=== PATIENT | male | born 1980 | race Two or more races ===

== ENCOUNTER 2020-11-16 01:59 | Emergency (ER) | payer SELFPAY ==
[~2020-11-16] VITALS: Ht 170.2 cm; Wt 81.8 kg
[2020-11-16] MEDS ORDERED: IV NORMAL SALINE 1000ML BAG 1,000 ML IV ONE (03:15)
[2020-11-16 03:25] LABS: BASO # 0.1 x10^3/uL (0.0-0.2); BASO % 1 % (0-3); EOS # 0.3 x10^3/uL (0.0-0.7); EOS % 3 % (0-3); HEMATOCRIT 41.4 % (39.0-53.0); LYMPH # 2.9 x10^3/uL (1.0-4.8); LYMPH % 34 % (24-48); MEAN CORPUSCULAR HEMOGLOBIN 30 pg (25-35); MEAN CORPUSCULAR HGB CONC 34 g/dL (31-37); MEAN CORPUSCULAR VOLUME 88 fL (79-100); MONO # 0.5 x10^3/uL (0.0-1.1); MONO % 6 % (0-9); NEUT # 4.8 x10^3/uL (1.8-7.7); NEUT % 56 % (31-73); PLATELET COUNT 300 x10^3/uL (140-400); RED CELL DISTRIBUTION WIDTH 13.2 % (11.5-14.5); WHITE BLOOD COUNT 8.6 x10^3/uL (4.0-11.0)
[2020-11-16 03:35] LABS: BILIRUBIN,URINE NEGATIVE (NEG); CLARITY,URINE CLEAR; COLOR,URINE YELLOW; NITRITE,URINE NEGATIVE (NEG); PROTEIN,URINE NEGATIVE (NEG-TRACE); UROBILINOGEN,URINE 0.2 mg/dL (0.2 mg/dL)
[2020-11-16 03:40] LABS: CALCIUM 8.7 mg/dL (8.5-10.1); GFR 82.3
[2020-11-16] MEDS ORDERED: ONDANSETRON PF 4 MG/2 ML VIAL. ONE (03:40)
[2020-11-16 03:45] LABS: ALBUMIN 3.3 g/dL (3.4-5.0); ALBUMIN/GLOBULIN RATIO 0.8 (1.0-1.7); TOTAL BILIRUBIN 0.2 mg/dL (0.2-1.0); TOTAL PROTEIN 7.2 g/dL (6.4-8.2)
[2020-11-16] MEDS ORDERED: ONDANSETRON PF 4 MG/2 ML VIAL. IVP ONE (03:45)
[2020-11-16] MEDS ORDERED: MORPHINE SULFATE 10 MG/ML VIAL. IV ONE ×2 (03:45→04:30)
[2020-11-16 03:49] LABS: BACTERIA,URINE 0 /HPF (0-FEW); RBC,URINE 0 /HPF (0-2); WBC,URINE 0 /HPF (0-4)
[2020-11-16] MEDS ORDERED: IOHEXOL 240 MG/ML 50ML VIAL. PO ONE (04:45)
[2020-11-16] MEDS ORDERED: IOHEXOL 300 MG/ML 100ML VIAL. IV ONE (04:45)
--- NOTE | 2020-11-16 04:47 | ED.ADGEN ---
Past Medical History Past Medical History: No Pertinent History Past Surgical History: Appendectomy Smoking Status: Never Smoker Alcohol Use: Occasionally General Adult EDM: Chief Complaint: ABDOMINAL PAIN HPI: HPI: Patient is a 40-year-old male who presents to the emergency room complaining of epigastric abdominal pain. He states that it started this evening around 10 PM. It has been constant since that time and has progressively gotten worse. He states he feels like it is a burning pain. He has never had anything similar to this in the past. He denies any nausea vomiting, diarrhea, constipation, fever, chills, sweats, chest pain. He states that it feels like it is difficult to take a deep breath because of the pressure in his abdomen. He feels like he is distended. He has never had anything like this previously. He denies any kind of trauma. He has not tried to eat or drink anything since this onset. Review of Systems: Review of Systems: Complete ROS is negative unless otherwise documented in HPI Current Medications: Current Medications Medications (Trade) Dose Ordered Sig/Rahul Start Time Stop Time Status Last Admin Dose Admin Info (CONTRAST GIVEN -- Rx MONITORING) 1 each PRN DAILY PRN 11/16/20 05:00 11/16/20 07:30 DC Iohexol (Omnipaque 240 Mg/ml) 30 ml 1X ONCE 11/16/20 04:45 11/16/20 04:48 DC 11/16/20 04:58 30 ML Iohexol (Omnipaque 300 Mg/ml) 75 ml 1X ONCE 11/16/20 04:45 11/16/20 04:48 DC 11/16/20 04:58 75 ML Morphine Sulfate (Morphine Sulfate) 5 mg 1X ONCE 11/16/20 04:30 11/16/20 04:31 DC 11/16/20 04:28 5 MG Multi-Ingredient Mouthwash/Gargle (Gi Cocktail) 20 ml 1X ONCE 11/16/20 05:30 11/16/20 05:31 DC 11/16/20 05:44 20 ML Ondansetron HCl (Zofran) 4 mg STK-MED ONCE 11/16/20 03:40 11/16/20 03:40 DC Sodium Chloride 1,000 ml @ 1,000 mls/hr 1X ONCE 11/16/20 03:15 11/16/20 04:14 DC 11/16/20 03:33 1,000 MLS/HR Sucralfate (Carafate) 1 gm 1X ONCE 11/16/20 05:30 11/16/20 05:31 DC 11/16/20 05:44 1 GM Allergies: Allergies: Allergies Coded Allergies Type Severity Reaction Last Updated Verified No Known Drug Allergies 11/16/20 No Physical Exam: PE: General: Awake, alert, NAD. Well Nourished, well hydrated. Cooperative HEENT: Atraumatic, EOMI, PERRL, airway patent, moist oral mucosa Neck: Supple, trachea midline Respiratory: CTA bilaterally, normal effort, no wheezing/crackles CV: RRR, no murmur, cap refill <2 GI: Soft, distended, no rebound, no guarding, epigastric and right upper quadrant tenderness MSK: No obvious deformities Skin: Warm, dry, intact Neuro: A&O x3, speech NL, sensory and motor grossly intact, no focal deficits Psych: Normal affect, normal mood, not suicidal or homicidal Current Patient Data: Labs: Laboratory Tests Test 11/16/20 03:18 11/16/20 03:29 White Blood Count 8.6 x10^3/uL (4.0-11.0) Red Blood Count 4.70 x10^6/uL (4.30-5.70) Hemoglobin 14.0 g/dL (13.0-17.5) Hematocrit 41.4 % (39.0-53.0) Mean Corpuscular Volume 88 fL (79-100) Mean Corpuscular Hemoglobin 30 pg (25-35) Mean Corpuscular Hemoglobin Concent 34 g/dL (31-37) Red Cell Distribution Width 13.2 % (11.5-14.5) Platelet Count 300 x10^3/uL (140-400) Neutrophils (%) (Auto) 56 % (31-73) Lymphocytes (%) (Auto) 34 % (24-48) Monocytes (%) (Auto) 6 % (0-9) Eosinophils (%) (Auto) 3 % (0-3) Basophils (%) (Auto) 1 % (0-3) Neutrophils # (Auto) 4.8 x10^3/uL (1.8-7.7) Lymphocytes # (Auto) 2.9 x10^3/uL (1.0-4.8) Monocytes # (Auto) 0.5 x10^3/uL (0.0-1.1) Eosinophils # (Auto) 0.3 x10^3/uL (0.0-0.7) Basophils # (Auto) 0.1 x10^3/uL (0.0-0.2) Sodium Level 138 mmol/L (136-145) Potassium Level 4.0 mmol/L (3.5-5.1) Chloride Level 106 mmol/L (98-107) Carbon Dioxide Level 21 mmol/L (21-32) Anion Gap 11 (6-14) Blood Urea Nitrogen 17 mg/dL (8-26) Creatinine 1.0 mg/dL (0.7-1.3) Estimated GFR (Cockcroft-Gault) 82.3 BUN/Creatinine Ratio 17 (6-20) Glucose Level 126 mg/dL (70-99) H Calcium Level 8.7 mg/dL (8.5-10.1) Total Bilirubin 0.2 mg/dL (0.2-1.0) Aspartate Amino Transferase (AST) 18 U/L (15-37) Alanine Aminotransferase (ALT) 39 U/L (16-63) Alkaline Phosphatase 102 U/L (46-116) Troponin I Quantitative < 0.017 ng/mL (0.000-0.055) Total Protein 7.2 g/dL (6.4-8.2) Albumin 3.3 g/dL (3.4-5.0) L Albumin/Globulin Ratio 0.8 (1.0-1.7) L Lipase 168 U/L (73-393) Urine Collection Type Unknown Urine Color Yellow Urine Clarity Clear Urine pH 5.0 (<5.0-8.0) Urine Specific [place] <=1.005 (1.000-1.030) Urine Protein Negative mg/dL (NEG-TRACE) Urine Glucose (UA) Negative mg/dL (NEG) Urine Ketones (Stick) Negative mg/dL (NEG) Urine Blood Negative (NEG) Urine Nitrite Negative (NEG) Urine Bilirubin Negative (NEG) Urine Urobilinogen Dipstick 0.2 mg/dL (0.2 mg/dL) Urine Leukocyte Esterase Negative (NEG) Urine RBC 0 /HPF (0-2) Urine WBC 0 /HPF (0-4) Urine Squamous Epithelial Cells Few /LPF Urine Bacteria 0 /HPF (0-FEW) Urine Mucus Slight /LPF Laboratory Tests 11/16/20 03:18 Laboratory Tests 11/16/20 03:18 Vital Signs: Vital Signs Date Time Temp Pulse Resp B/P (MAP) Pulse Ox O2 Delivery O2 Flow Rate FiO2 11/16/20 06:30 66 14 141/79 (99) 95 Room Air 11/16/20 03:00 97.7 97.7 EKG: EKG: [] Heart Score: Risk Factors: Risk Factors: DM, Current or recent (<one month) smoker, HTN, HLP, family history of CAD, obesity. Risk Scores: Score 0 - 3: 2.5% MACE over next 6 weeks - Discharge Home Score 4 - 6: 20.3% MACE over next 6 weeks - Admit for Clinical Observation Score 7 - 10: 72.7% MACE over next 6 weeks - Early Invasive Strategies Radiology/Procedures: Radiology/Procedures: [] Course & Med Decision Making: Course & Med Decision Making Pertinent Labs and Imaging studies reviewed. (See chart for details) Patient is a 40-year-old male who presents to the emergency room complaining of epigastric abdominal pain with his sudden onset around 10 PM while resting. Patient does have tenderness in the epigastric and right upper quadrant abdomen. Differential diagnosis includes atypical cardiac chest pain, gastritis, peptic ulcer disease, perforated ulcer, acute cholecystitis, hepatitis, gastroenteritis. EKG was done and is negative for STEMI. Abdominal work-up was ordered including CBC, CMP, lipase, UA, CT abdomen pelvis. Patient attempted to drink the contrast but then had a worsening burning sensation in his abdomen. CT abdomen pelvis is normal. This is likely an ulcer or gastritis. Will place patient on Nexium and Carafate. Patient's test results and vitals while in the ED were fully reviewed and discussed with the patient. Patient is stable and at this time does not need admission to the hospital. We have discussed strict return precautions and the importance of following up with their Primary Care Physician. Patient stated understanding and was given an opportunity to ask any questions. Patient is in agreement with plan. Selvin Disclaimer: Selvin Disclaimer: This electronic medical record was generated, in whole or in part, using a voice recognition dictation system. Departure Departure Impression: Primary Impression: Gastritis Disposition: 01 DC HOME SELF CARE/HOMELESS Condition: STABLE Referrals: NO PCP (PCP) Patient Instructions: Peptic Ulcer Disease Scripts Esomeprazole Magnesium (NEXIUM CAPSULE) 20 Mg Capsule.dr 1 CAP PO DAILY, #14 CAP 0 Refills Prov: TIARA CIFUENTES MD 11/16/20 Sucralfate (CARAFATE) 1 Gm Tablet 1 TAB PO QID for 30 Days, #120 TAB 0 Refills Prov: TIARA CIFUENTES MD 11/16/20 TIARA CIFUENTES MD Nov 16, 2020 04:47
[2020-11-16] MEDS ORDERED: CONTRAST GIVEN. MC PRN (05:00)
--- NOTE | 2020-11-16 05:23 | RAD ---
PQRS Compliance Statement: One or more of the following individualized dose reduction techniques were utilized for this examinat ion: 1. Automated exposure control 2. Adjustment of the mA and/or kV according to patient size 3. Use of iterative reconstruction technique CT abdomen/pelvis with contrast 11/16/2020 4:44 AM INDICATION: Epigastric abdominal pain COMPARISON: None available TECHNIQUE: Multiple axial CT images of the abdomen and pelvis were obtained after the intravenous adm inistration of nonionic contrast. Coronal and sagittal reformats are provided. FINDINGS: There is bibasilar subsegmental atelectasis. Heart size is within normal limits. Liver, spleen, adrenal glands, pancreas and gallbladder are normal in appearance. The abdominal aorta is normal in course and caliber. There are no pathologically enlarged lymph nodes in the abdomen and pelvis. There is no abdominal free fluid. There is no free intraperitoneal air. S mall fat-containing bilateral inguinal hernias are present. Small and large bowel are normal in calib er. There is no evidence for bowel obstruction. There are no pericolonic inflammatory changes. Append ix is surgically absent. The kidneys enhance symmetrically. There is no suspicious renal mass. There is no hydronephrosis. There are no suspected calculi within the kidneys, ureters or urinary bladder. The kidneys enhance symmetrically. There is no suspicious renal mass. There is no hydronephrosis. The re are no suspected calculi within the kidneys, ureters or urinary bladder. Urinary bladder is within normal limits given degree of distention. Prostate and seminal vesicles are normal. No suspicious os seous abnormality is identified. IMPRESSION: No acute abnormalities identified in abdomen and pelvis. Electronically signed by: Noreen Elizalde MD (11/16/2020 5:20 AM) [facility]
[2020-11-16] MEDS ORDERED: SUCR1TAB35 PO (05:29)
[2020-11-16] MEDS ORDERED: ESOM20CA PO (05:29)
[2020-11-16] MEDS ORDERED: SUCRALFATE 1 GM TABLET. PO ONE (05:30)
[2020-11-16] MEDS ORDERED: LIDO:MAALOX 1:1 20 ML SINGLE DOSE. SWSW ONE (05:30)
[2020-11-16 06:30] VITALS: BP 141/79
--- NOTE | 2020-11-16 08:55 | EKG ---
[facility] [address] [place] [address] Test Date: 2020-11-16 Test Time: 03:27:35 Pat Name: BRAN CHARLES Department: Room: Gender: M Football Coach: : 1980 Requested By: TIARA CIFUENTES Order Number: [id number] Reading MD: Measurements Intervals [place] Rate: 64 P: 34 ND: 152 QRS: 15 QRSD: 82 T: 15 QT: 408 QTc: 425 Interpretive Statements SINUS RHYTHM OTHERWISE NORMAL ECG RI6.02 No previous ECG available for comparison
== END 2020-11-16 06:59 | disposition home or self-care (01) ==
LOC: ER 01:59
DX: K29.70 Gastritis, unspecified, without bleeding (principal); Z90.89 Acquired absence of other organs
CPT/HCPCS: 36415; 74177; 80053; 81001; 83690; 84484; 85025; 93005; 96361; 96374; 96375; 96376; 99285; J2270; J2405; J7030; Q9966; Q9967

== ENCOUNTER 2021-09-10 23:56 | Inpatient (IN) | payer SELFPAY ==
[~2021-09-10] VITALS: Ht 170.2 cm; Wt 81.0 kg
[~2021-09-10 23:56] MED LIST: ESOM20CA PO; SUCR1TAB35 PO
[2021-09-11 01:21] LABS: BASO % 0 % (0-3); EOS # 0.2 x10^3/uL (0.0-0.7); EOS % 1 % (0-3); HEMATOCRIT 42.6 % (39.0-53.0); HEMOGLOBIN 14.2 g/dL (13.0-17.5); LYMPH # 3.2 x10^3/uL (1.0-4.8); LYMPH % 23 % (24-48); MEAN CORPUSCULAR HEMOGLOBIN 30 pg (25-35); MEAN CORPUSCULAR HGB CONC 33 g/dL (31-37); MEAN CORPUSCULAR VOLUME 89 fL (79-100); MONO # 0.7 x10^3/uL (0.0-1.1); MONO % 6 % (0-9); NEUT # 9.4 x10^3/uL (1.8-7.7); NEUT % 69 % (31-73); PLATELET COUNT 346 x10^3/uL (140-400); RED BLOOD COUNT 4.79 x10^6/uL (4.30-5.70); RED CELL DISTRIBUTION WIDTH 13.4 % (11.5-14.5); WHITE BLOOD COUNT 13.5 x10^3/uL (4.0-11.0)
[2021-09-11 01:29] LABS: CALCIUM 8.8 mg/dL (8.5-10.1); CREATININE 0.9 mg/dL (0.7-1.3); GFR 92.5; POTASSIUM 3.7 mmol/L (3.5-5.1)
[2021-09-11] MEDS ORDERED: IV NORMAL SALINE 1000ML BAG 1,000 ML IV SCH (01:30)
[2021-09-11] MEDS ORDERED: HYDROmorphone 2 MG/ML VIAL IVP ONE ×3 (01:30→05:30)
[2021-09-11] MEDS ORDERED: FAMOTIDINE 20 MG/2 ML VIAL IVP ONE ×2 (01:30→05:30)
[2021-09-11 01:36] LABS: ALBUMIN 3.6 g/dL (3.4-5.0); DIRECT BILIRUBIN 0.1 mg/dL (0.0-0.2); TOTAL BILIRUBIN 0.3 mg/dL (0.2-1.0); TOTAL PROTEIN 7.6 g/dL (6.4-8.2)
[2021-09-11] MEDS ORDERED: CONTRAST GIVEN. MC PRN (02:00)
[2021-09-11] MEDS ORDERED: IOHEXOL 300 MG/ML 100ML VIAL. IV ONE (02:30)
--- NOTE | 2021-09-11 03:23 | RAD ---
INDICATION: Reason: severe upper abdominal pain;OMNI 300, 75ML / Spl. Instructions: / History: . COMPARISON: CT abdomen November 2020 TECHNIQUE: Axial CT images obtained through the chest, abdomen and pelvis with contrast. One or more of the following individualized dose reduction techniques were utilized for this examinat ion: 1. Automated exposure control; 2. Adjustment of the mA and/or kV according to patient size; 3 . Use of iterative reconstruction technique. FINDINGS: Mild patchy opacities bilateral lungs. No thoracic aortic aneurysm. Degenerative changes spine. No abdominal aortic aneurysm. Fat-containing inguinal hernias. Liver is low density which can be seen with fatty infiltration. Gallbladder is mildly distended. Small fat-containing anterior abdominal wall hernia suspected. No peripancreatic fluid collection. Spleen unremarkable. No hydronephrosis. Urinary bladder is partially distended. Scattered colonic diverticulosis. Surgical clips right lower quadrant. Degenerative changes lumbar spine with multilevel central canal and neural foraminal stenosis. IMPRESSION: * No evidence of bowel obstruction. * Mild patchy opacities bilateral lungs could be atelectasis or infiltrate. * Gallbladder is distended at time of exam. * Degenerative changes the spine. There is also some wedging of thoracic vertebral bodies which coul d be congenital in nature or secondary to Schmorl's nodes or mild compression deformities this includ es at T1, T2, T3 and T4. Electronically signed by: Thierno Montiel MD (09/11/2021 3:20 AM) [id number]
--- NOTE | 2021-09-11 03:30 | PHYS DOC ---
Past Medical History Past Medical History: No Pertinent History Past Surgical History: Appendectomy Smoking Status: Current Every Day Smoker Alcohol Use: Occasionally General Adult EDM: Chief Complaint: ABDOMINAL PAIN HPI: HPI: 41-year-old male, who denies any past medical history, presents the ED with his girlfriend, (patient consents to his/her/their knowledge and involvement in pts' medical care), with complaints of severe, sharp, nonradiating epigastric and right upper quadrant pain that woke him up around 2 AM. Reports associated dizziness. Past surgical history of appendectomy. States he was seen here few years ago for the same pain. Last bowel movement was just prior to arrival, normal brown color. States he had 2 shots of alcohol earlier in the morning-denies any binge drinking or IV drug use. No associated trauma. Review of Systems: Review of Systems: Constitutional: Denies fever or chills. [] Eyes: Denies change in visual acuity. [] HENT: Denies nasal congestion or sore throat. [] Respiratory: Denies cough or shortness of breath. [] Cardiovascular: Denies chest pain or edema. [] GI: Denies bloody stools or diarrhea. [] : Denies dysuria or hematuria Musculoskeletal: Denies midline back pain or joint pain. [] Integument: Denies rash or diaphoresis Neurologic: Denies headache, focal weakness or sensory changes. [] Endocrine: Denies polyuria or polydipsia. [] Lymphatic: Denies swollen glands. [] Psychiatric: Denies depression or anxiety. [] Heart Score: C/O Chest Pain: No Risk Factors: Risk Factors: DM, Current or recent (<one month) smoker, HTN, HLP, family history of CAD, obesity. Risk Scores: Score 0 - 3: 2.5% MACE over next 6 weeks - Discharge Home Score 4 - 6: 20.3% MACE over next 6 weeks - Admit for Clinical Observation Score 7 - 10: 72.7% MACE over next 6 weeks - Early Invasive Strategies Current Medications: Current Medications Medications (Trade) Dose Ordered Sig/Rahul Start Time Stop Time Status Last Admin Dose Admin Famotidine (Pepcid Vial) 20 mg 1X ONCE 09/11/21 01:30 09/11/21 01:31 DC 09/11/21 01:24 20 MG Hydromorphone HCl (Dilaudid) 1 mg 1X ONCE 09/11/21 02:30 09/11/21 02:31 DC 09/11/21 02:11 1 MG Info (CONTRAST GIVEN -- Rx MONITORING) 1 each PRN DAILY PRN 09/11/21 02:00 09/13/21 01:59 Iohexol (Omnipaque 300 Mg/ml) 75 ml 1X ONCE 09/11/21 02:30 09/11/21 02:31 DC 09/11/21 02:06 75 ML Sodium Chloride 1,000 ml @ 1,000 mls/hr Q1H 09/11/21 01:30 09/11/21 02:29 DC 09/11/21 01:23 1,000 MLS/HR Allergies: Allergies: Allergies Coded Allergies Type Severity Reaction Last Updated Verified No Known Drug Allergies 11/16/20 No Physical Exam: PE: Constitutional: Writhing in pain, constantly moving in ED stretcher-pain is not positional, faint alcohol on breath, hypertensive HENT: Normocephalic, atraumatic, Eyes: EOMI, conjunctiva normal, no discharge. Neck: Normal range of motion, supple, Cardiovascular: S1/2 present, regular rhythm Lungs & Thorax: Speaking in full sentences, bilateral equal chest rise, no tachypnea or increased work of breathing Abdomen: soft, epigastric and right upper quadrant tenderness but no rest with inspiration, no rigidity Skin: Warm, dry, no erythema, no rash. [] Back: No tenderness, physical exam reports right flank pain Extremities: No tenderness, no cyanosis, no lower extremity edema Neurologic: Alert and oriented X 3, normal motor function, normal sensory function, no focal deficits noted. [] Psychologic: Affect normal, judgement normal, mood normal. [] Current Patient Data: Labs: Laboratory Tests Test 09/11/21 01:10 White Blood Count 13.5 x10^3/uL (4.0-11.0) H Red Blood Count 4.79 x10^6/uL (4.30-5.70) Hemoglobin 14.2 g/dL (13.0-17.5) Hematocrit 42.6 % (39.0-53.0) Mean Corpuscular Volume 89 fL (79-100) Mean Corpuscular Hemoglobin 30 pg (25-35) Mean Corpuscular Hemoglobin Concent 33 g/dL (31-37) Red Cell Distribution Width 13.4 % (11.5-14.5) Platelet Count 346 x10^3/uL (140-400) Neutrophils (%) (Auto) 69 % (31-73) Lymphocytes (%) (Auto) 23 % (24-48) L Monocytes (%) (Auto) 6 % (0-9) Eosinophils (%) (Auto) 1 % (0-3) Basophils (%) (Auto) 0 % (0-3) Neutrophils # (Auto) 9.4 x10^3/uL (1.8-7.7) H Lymphocytes # (Auto) 3.2 x10^3/uL (1.0-4.8) Monocytes # (Auto) 0.7 x10^3/uL (0.0-1.1) Eosinophils # (Auto) 0.2 x10^3/uL (0.0-0.7) Basophils # (Auto) 0.0 x10^3/uL (0.0-0.2) Sodium Level 140 mmol/L (136-145) Potassium Level 3.7 mmol/L (3.5-5.1) Chloride Level 102 mmol/L (98-107) Carbon Dioxide Level 28 mmol/L (21-32) Anion Gap 10 (6-14) Blood Urea Nitrogen 20 mg/dL (8-26) Creatinine 0.9 mg/dL (0.7-1.3) Estimated GFR (Cockcroft-Gault) 92.5 Glucose Level 140 mg/dL (70-99) H Calcium Level 8.8 mg/dL (8.5-10.1) Total Bilirubin 0.3 mg/dL (0.2-1.0) Direct Bilirubin 0.1 mg/dL (0.0-0.2) Aspartate Amino Transferase (AST) 19 U/L (15-37) Alanine Aminotransferase (ALT) 39 U/L (16-63) Alkaline Phosphatase 129 U/L (46-116) H Creatine Kinase 94 U/L (39-308) Troponin I High Sensitivity < 4 ng/L (4-75) L Total Protein 7.6 g/dL (6.4-8.2) Albumin 3.6 g/dL (3.4-5.0) Lipase 130 U/L (73-393) Ethyl Alcohol Level < 10 mg/dL (0-10) Laboratory Tests 09/11/21 01:10 Laboratory Tests 09/11/21 01:10 Vital Signs: Vital Signs Date Time Temp Pulse Resp B/P (MAP) Pulse Ox O2 Delivery O2 Flow Rate FiO2 09/11/21 02:11 22 98 Room Air 09/11/21 01:35 60 130/81 (97) 09/11/21 01:07 97.5 97.5 EKG: EKG: Sinus 64 bpm, no axis deviation, normal intervals, no T wave inversion, no ST elevation or ST depression Radiology/Procedures: Radiology/Procedures: IMAGING REPORT Signed PATIENT: BRAN CHARLES ACCOUNT: [id number] : 1980 LOCATION: ER AGE: 41 SEX: M EXAM STATUS: REG ER ORD. PHYSICIAN: DAQUAN PALACIOS DO REASON: severe upper abdominal pain;OMNI 300, 75ML PROCEDURE: CT CHEST ABD PELVIS W/CONTRAST INDICATION: Reason: severe upper abdominal pain;OMNI 300, 75ML / Spl. Instructions: / History: . COMPARISON: CT abdomen November 2020 TECHNIQUE: Axial CT images obtained through the chest, abdomen and pelvis with contrast. One or more of the following individualized dose reduction techniques were utilized for this examination: 1. Automated exposure control; 2. Adjustment of the mA and/or kV according to patient size; 3. Use of iterative reconstruction technique. FINDINGS: Mild patchy opacities bilateral lungs. No thoracic aortic aneurysm. Degenerative changes spine. No abdominal aortic aneurysm. Fat-containing inguinal hernias. Liver is low density which can be seen with fatty infiltration. Gallbladder is mildly distended. Small fat-containing anterior abdominal wall hernia suspected. No peripancreatic fluid collection. Spleen unremarkable. No hydronephrosis. Urinary bladder is partially distended. Scattered colonic diverticulosis. Surgical clips right lower quadrant. Degenerative changes lumbar spine with multilevel central canal and neural foraminal stenosis. IMPRESSION: * No evidence of bowel obstruction. * Mild patchy opacities bilateral lungs could be atelectasis or infiltrate. * Gallbladder is distended at time of exam. * Degenerative changes the spine. There is also some wedging of thoracic vertebral bodies which could be congenital in nature or secondary to Schmorl's nodes or mild compression deformities this includes at T1, T2, T3 and T4. Electronically signed by: Becki Sol MD (09/11/2021 3:20 AM) [id number] DICTATED and SIGNED BY: BECKI SOL MD DATE: 09/11/[id number] 0 IMAGING REPORT Signed PATIENT: BRAN CHARLES ACCOUNT: [id number] : 1980 LOCATION: ER AGE: 41 SEX: M EXAM STATUS: REG ER ORD. PHYSICIAN: DAQUAN PALACIOS DO REASON: ruq pain, distended gb PROCEDURE: ABDOMEN LTD INDICATION : Reason: ruq pain, distended gb / Spl. Instructions: / History: COMPARISON: CT from same day TECHNIQUE: Multiple ultrasound images obtained through the abdomen in grayscale and color. FINDINGS: Pancreas: Overlying structures obscuring Liver: Echogenic Gallbladder: Distended gallbladder with stones and sludge within. The patient has some tenderness in the area. Portions the wall prominent in thickness measuring up to 4 mm. IVC: Partially distended at level of liver. Common Bile Duct: Not dilated. Right Kidney: No hydronephrosis. IMPRESSION: * Distended gallbladder with stones and sludge within. There is also mild prominence of the wall within a portion of the gallbladder for the degree of distention. Would correlate with symptoms in the area and if further information is needed nuclear hepatobiliary scan could further assess for cholecystitis given the presence of this distention and stones as well as sludge. * Liver is echogenic. Can be seen with fatty infiltration. Electronically signed by: Becki Sol MD (09/11/2021 4:18 AM) [id number] DICTATED and SIGNED BY: BECKI SOL MD DATE: 09/11/21 [id number] *CXR radiology read pending, i viewed myself Course & Med Decision Making: Course & Med Decision Making Pertinent Labs and Imaging studies reviewed. (See chart for details) Concern for upper and right-sided abdominal pain in the setting of nausea and vomiting. Imaging concerning for acute cholecystitis, patient may benefit from a HIDA scan. Patient started on Zosyn and Cipro. Patient with urticaria/acute allergic reaction after Zosyn. Patient reported no history of a known penicillin allergy. Antibiotic was fully completed. Will admit to medicine for further medical management with surgery consultation placed. Rapid Covid negative. I have spoken with the patient and/or caregivers. I have explained the patient's condition, diagnosis and treatment plan based on the information avail able to me at this time. I have answered the patient's and/or caregivers questions and answered any concerns. The patient and/or caregivers have as good an understanding of the patient's diagnosis, condition and treatment plan as can be expected at this point. The patient has been stabilized within the capability of the emergency department. The patient will be transported for further care and management or will be moved to an observation or inpatient service. I have communicated with the staff or medical practitioner taking over this patient's care. Selvin Disclaimer: Selvin Disclaimer: This electronic medical record was generated, in whole or in part, using a voice recognition dictation system. Departure Departure Impression: Primary Impression: Acute cholecystitis Additional Impressions: Right upper quadrant pain Nausea and vomiting Allergic reaction to penicillin Disposition: ADMITTED INPATIENT Admitting Physician: FLORECITA (Dr. Caputo) Condition: STABLE Referrals: NO PCP (PCP) DAQUAN PALACIOS DO Sep 11, 2021 03:30
[2021-09-11] MEDS ORDERED: PIP/TAZO PER PHARMACY MC PRN ×2 (04:00→09:30)
[2021-09-11] MEDS ORDERED: PIPERACILLIN/TAZOBACTAM 3.375 GM in IV NORMAL SALINE 50ML 50 ML IV SCH (04:00)
[2021-09-11 04:09] LABS: BILIRUBIN,URINE NEGATIVE (NEG); CLARITY,URINE CLEAR; COLOR,URINE YELLOW; NITRITE,URINE NEGATIVE (NEG); PROTEIN,URINE NEGATIVE (NEG-TRACE); UROBILINOGEN,URINE 0.2 mg/dL (0.2 mg/dL)
[2021-09-11] MEDS: IV NORMAL SALINE 1000ML BAG 1,000 ML IV SCH ×3 (04:12→21:31)
[2021-09-11 04:16] LABS: BARBITURATES NEG (NEG); BENZODIAZEPINES NEG (NEG); CANNABINOIDS NEG (NEG); COCAINE NEG (NEG); METHADONE NEG (NEG); OPIATES POS (NEG); PHENCYCLIDINE NEG (NEG)
[2021-09-11 04:18] LABS: AMPHETAMINE/METHAMPHETAMINE NEG (NEG)
--- NOTE | 2021-09-11 04:20 | RAD ---
INDICATION : Reason: ruq pain, distended gb / Spl. Instructions: / History: COMPARISON: CT from same day TECHNIQUE: Multiple ultrasound images obtained through the abdomen in grayscale and color. FINDINGS: Pancreas: Overlying structures obscuring Liver: Echogenic Gallbladder: Distended gallbladder with stones and sludge within. The patient has some tenderness in the area. Portions the wall prominent in thickness measuring up to 4 mm. IVC: Partially distended at level of liver. Common Bile Duct: Not dilated. Right Kidney: No hydronephrosis. IMPRESSION: * Distended gallbladder with stones and sludge within. There is also mild prominence of the wall wi thin a portion of the gallbladder for the degree of distention. Would correlate with symptoms in the area and if further information is needed nuclear hepatobiliary scan could further assess for cholecy stitis given the presence of this distention and stones as well as sludge. * Liver is echogenic. Can be seen with fatty infiltration. Electronically signed by: Thierno Montiel MD (09/11/2021 4:18 AM) [id number]
[2021-09-11] MEDS ORDERED: CIPROFLOXACIN 400MG PREMIX 200 ML IV ONE (04:30)
[2021-09-11] MEDS ORDERED: ONDANSETRON PF 4 MG/2 ML VIAL. IVP ONE (04:30)
[2021-09-11 04:48] LABS: BACTERIA,URINE 0 /HPF (0-FEW); RBC,URINE 0 /HPF (0-2); WBC,URINE OCC /HPF (0-4)
[2021-09-11] MEDS ORDERED: diphenhydrAMINE 50 MG/ML VIAL ONE (04:56)
[2021-09-11] MEDS ORDERED: DEXAMETHASONE SOD PHOS 20 MG/5 ML VIAL. IV ONE (05:30)
[2021-09-11] MEDS ORDERED: METOCLOPRAMIDE HCL 10 MG/2 ML VIAL. IVP ONE (05:30)
[2021-09-11] MEDS ORDERED: diphenhydrAMINE 50 MG/ML VIAL IVP ONE (05:30)
[2021-09-11] MEDS ORDERED: KETOROLAC 15 MG/ML VIAL. IVP ONE (05:30)
--- NOTE | 2021-09-11 08:23 | RAD ---
EXAMINATION: Chest radiograph. VIEWS: 1 COMPARISON: None INDICATION:41 years, Male, right upper quadrant abdominal pain. FINDINGS: Normal cardiomediastinal silhouette. No focal consolidation. No pleural effusion or pneumothorax. No acute osseous process. IMPRESSION: No acute cardiopulmonary process. Electronically signed by: Traci Ying MD (09/11/2021 8:21 AM) [facility]
[2021-09-11] MEDS ORDERED: ONDANSETRON PF 4 MG/2 ML VIAL. IVP PRN (09:30)
[2021-09-11] MEDS ORDERED: ZOLPIDEM 5 MG TABLET. PO PRN (09:30)
[2021-09-11] MEDS ORDERED: MORPHINE SULFATE 2 MG/ML INJ. IV PRN (09:30)
[2021-09-11] MEDS ORDERED: ACETAMINOPHEN 325 MG TABLET. PO PRN (09:30)
[2021-09-11] MEDS ORDERED: ELECTROLYTE (NON-ICU) PROTOCOL. MC PRN (09:30)
[2021-09-11] MEDS ORDERED: PROCHLORPERAZINE 10 MG/2 ML VIAL. IVP PRN (09:30)
[2021-09-11] MEDS ORDERED: oxyCODONE IR 5 MG TABLET PO PRN (09:30)
[2021-09-11] MEDS ORDERED: CALCIUM CARBONATE 500 MG TAB.CHEW PO PRN (09:30)
[2021-09-11] MEDS: PANTOPRAZOLE 40 MG TABLET.DR. PO SCH (10:00)
[2021-09-11] MEDS: SUCRALFATE 1 GM TABLET. PO SCH ×3 (13:00→19:55)
[2021-09-11 13:30] VITALS: BP 135/83
[2021-09-11] MEDS: MORPHINE SULFATE 2 MG/ML INJ. IV PRN ×3 (13:36→21:31)
--- NOTE | 2021-09-11 14:31 | PDOC1 ---
History and Physical Date of Service: DOS: DATE: 09/11/21 TIME: 14:27 Chief Complaint: Chief Complain: abdominal pain History of Present Illness: HPI: 41-year-old male, who denies any past medical history, presents the ED, with complaints of severe, sharp, nonradiating epigastric and right upper quadrant pain that woke him up around 2 AM. Reports associated dizziness. Past surgical history of appendectomy. States he was seen here few years ago for the same pain. Last bowel movement was just prior to arrival, normal brown color. States he had 2 shots of alcohol earlier in the morning-denies any binge drinking or IV drug use. No associated trauma. Ros evaluate the patient at the bedside he was resting in bed this pain has somewhat improved but still pretty painful. Imaging showing acute cholecystitis. Surgical consult ordered. Past Medical/Surgical History: PMH/PSH: Appendectomy Allergies: Allergies: Coded Allergies: piperacillin (Verified Allergy, Intermediate, HIVES AND RASH, 09/11/21) tazobactam (Verified Allergy, Intermediate, HIVES AND RASH, 09/11/21) Family History: Family History: Reviewed with patient none none Social History: Social History: Daily tobacco use. Occasional alcohol use denies drug use Current Medications: Current Medications Current Medications Sodium Chloride 1,000 ml @ 1,000 mls/hr Q1H IV Last administered on 09/11/21at 01:23; Start 09/11/21 at 01:30; Stop 09/11/21 at 02:29; Status DC Famotidine (Pepcid Vial) 20 mg 1X ONCE IVP Last administered on 09/11/21at 01:24; Start 09/11/21 at 01:30; Stop 09/11/21 at 01:31; Status DC Hydromorphone HCl (Dilaudid) 1 mg 1X ONCE IVP Last administered on 09/11/21at 01:30; Start 09/11/21 at 01:30; Stop 09/11/21 at 01:31; Status DC Hydromorphone HCl (Dilaudid) 1 mg 1X ONCE IVP Last administered on 09/11/21at 02:11; Start 09/11/21 at 02:30; Stop 09/11/21 at 02:31; Status DC Iohexol (Omnipaque 300 Mg/ml) 75 ml 1X ONCE IV Last administered on 09/11/21at 02:06; Start 09/11/21 at 02:30; Stop 09/11/21 at 02:31; Status DC Info (CONTRAST GIVEN -- Rx MONITORING) 1 each PRN DAILY PRN MC SEE COMMENTS; Start 09/11/21 at 02:00; Stop 09/13/21 at 01:59 Ciprofloxacin/ Dextrose 200 ml @ 200 mls/hr 1X ONCE IV Last administered on 09/11/21at 05:11; Start 09/11/21 at 04:30; Stop 09/11/21 at 05:29; Status DC Piperacillin Sod/ Tazobactam Sod (Zosyn Per Pharmacy) 1 each PRN DAILY PRN MC SEE COMMENTS; Start 09/11/21 at 04:00; Stop 09/11/21 at 04:55; Status DC Sodium Chloride 1,000 ml @ 100 mls/hr Q10H IV Last administered on 09/11/21at 13:37; Start 09/11/21 at 04:00; Stop 09/12/21 at 03:59 Piperacillin Sod/ Tazobactam Sod 3.375 gm/Sodium Chloride 50 ml @ 100 mls/hr Q6HRS IV Last administered on 09/11/21at 04:15; Start 09/11/21 at 04:00; Stop 09/11/21 at 04:55; Status DC Ondansetron HCl (Zofran) 8 mg 1X ONCE IVP Last administered on 09/11/21at 04:10; Start 09/11/21 at 04:30; Stop 09/11/21 at 04:31; Status DC Dexamethasone Sodium Phosphate (Decadron) 10 mg 1X ONCE IV Last administered on 09/11/21at 04:58; Start 09/11/21 at 05:30; Stop 09/11/21 at 05:31; Status DC Famotidine (Pepcid Vial) 20 mg 1X ONCE IVP Last administered on 09/11/21at 05:07; Start 09/11/21 at 05:30; Stop 09/11/21 at 05:31; Status DC Diphenhydramine HCl (Benadryl) 50 mg 1X ONCE IVP Last administered on 09/11/21at 05:01; Start 09/11/21 at 05:30; Stop 09/11/21 at 05:31; Status DC Diphenhydramine HCl (Benadryl) 50 mg STK-MED ONCE .ROUTE ; Start 09/11/21 at 04:56; Stop 09/11/21 at 04:56; Status DC Metoclopramide HCl (Reglan Vial) 10 mg 1X ONCE IVP Last administered on 09/11/21at 08:34; Start 09/11/21 at 05:30; Stop 09/11/21 at 05:31; Status DC Ketorolac Tromethamine (Toradol 15mg Vial) 15 mg 1X ONCE IVP Last administered on 09/11/21at 08:35; Start 09/11/21 at 05:30; Stop 09/11/21 at 05:31; Status DC Hydromorphone HCl (Dilaudid) 0.5 mg 1X ONCE IVP Last administered on 09/11/21at 08:35; Start 09/11/21 at 05:30; Stop 09/11/21 at 05:31; Status DC Sucralfate (Carafate) 1 gm QID PO ; Start 09/11/21 at 13:00 Pantoprazole Sodium (Protonix) 40 mg DAILYAC PO ; Start 09/11/21 at 10:00 Piperacillin Sod/ Tazobactam Sod (Zosyn Per Pharmacy) 1 each PRN DAILY PRN MC SEE COMMENTS; Start 09/11/21 at 09:30; Status UNV Ondansetron HCl (Zofran) 4 mg PRN Q6HRS PRN IVP NAUSEA/VOMITING; Start 09/11/21 at 09:30 Prochlorperazine Edisylate (Compazine) 10 mg PRN Q6HRS PRN IVP NAUSEA/VOMITING- 2ND CHOICE; Start 09/11/21 at 09:30 Calcium Carbonate/ Glycine (Tums) 500 mg PRN Q3HRS PRN PO UPSET STOMACH; Start 09/11/21 at 09:30 Zolpidem Tartrate (Ambien) 5 mg PRN QHS PRN PO INSOMNIA, MAY REPEAT IN 1HR; Start 09/11/21 at 09:30 Info (Non-Icu Electrolyte Protocol) 1 ea PRN DAILY PRN MC SEE COMMENTS; Start 09/11/21 at 09:30 Oxycodone HCl (Roxicodone) 5 mg PRN Q3HRS PRN PO BREAKTHROUGH PAIN; Start 09/11/21 at 09:30 Morphine Sulfate (Morphine Sulfate) 1 mg PRN Q1HR PRN IV MODERATE PAIN; Start 09/11/21 at 09:30 Morphine Sulfate (Morphine Sulfate) 2 mg PRN Q1HR PRN IV SEVERE PAIN Last administered on 09/11/21at 13:36; Start 09/11/21 at 09:30 Acetaminophen (Tylenol) 650 mg PRN Q6HRS PRN PO Headaches, Temp > 101.5F; Start 09/11/21 at 09:30 Senna/Docusate Sodium (Senna Plus) 1 tab BID PO ; Start 09/11/21 at 21:00 Cefoxitin Sodium (Mefoxin) 1 gm Q8HRS IVP ; Start 09/11/21 at 14:00 Cefazolin Sodium/ Dextrose 50 ml @ 100 mls/hr 1X PREOP PRN IV PRIOR TO PROCEDURE; Start 09/12/21 at 13:00; Stop 09/12/21 at 13:01 Active Scripts Active ROS: Review of Systems Review of System Unless noted in HPI 14 point review of systems was negative Physical Exam: Vital Signs: Vital Signs Date Time Temp Pulse Resp B/P (MAP) Pulse Ox O2 Delivery O2 Flow Rate FiO2 09/11/21 13:36 16 95 Room Air 09/11/21 13:30 97.0 78 135/83 (100) 97.0 09/11/21 08:39 2.0 Physcial Exam: GEN: Mild distress, alert and oriented x3 HEENT: Normal cephalic, atraumatic, external auditory canals are patent EYES: Extraocular muscles are intact, pupil are equally round and reactive to light and accommodation MUSCULOSKELETAL: Well developed , well nourished, good range of motion ENDOCRINE: No thyromegaly was palpated LYMPHATICS: No cervical chain or axillary nodes were noted HEMATOPOIETIC: No bruising NECK: Supple, no JVD, no thyromegaly was noted LUNGS: Clear to auscultation in all lung tee without rhonchi or wheezing HEART: RRR, S!, S2 present. Peripheral pulses intact, no obvious murmurs noted ABDOMEN: Diffusely tender particularly right upper quadrant and epigastrium. Normal bowel sounds EXTREMITIES: Without clubbing, cyanosis, or edema. Pedal pulses intact. NEUROLOGIC: Normal speech and tone. A&O x 3, moves all extremities, no obvious focal deficits PSYCHIATRIC: Normal affect, normal mood. Stable SKIN: No ulcerations or rashes, good skin turgor, no jaundice VASCULAR: Good capillary refill, neurovascular bundle appears to be intact Labs: Labs: Laboratory Tests Test 09/11/21 01:10 09/11/21 03:58 White Blood Count 13.5 x10^3/uL (4.0-11.0) Red Blood Count 4.79 x10^6/uL (4.30-5.70) Hemoglobin 14.2 g/dL (13.0-17.5) Hematocrit 42.6 % (39.0-53.0) Mean Corpuscular Volume 89 fL (79-100) Mean Corpuscular Hemoglobin 30 pg (25-35) Mean Corpuscular Hemoglobin Concent 33 g/dL (31-37) Red Cell Distribution Width 13.4 % (11.5-14.5) Platelet Count 346 x10^3/uL (140-400) Neutrophils (%) (Auto) 69 % (31-73) Lymphocytes (%) (Auto) 23 % (24-48) Monocytes (%) (Auto) 6 % (0-9) Eosinophils (%) (Auto) 1 % (0-3) Basophils (%) (Auto) 0 % (0-3) Neutrophils # (Auto) 9.4 x10^3/uL (1.8-7.7) Lymphocytes # (Auto) 3.2 x10^3/uL (1.0-4.8) Monocytes # (Auto) 0.7 x10^3/uL (0.0-1.1) Eosinophils # (Auto) 0.2 x10^3/uL (0.0-0.7) Basophils # (Auto) 0.0 x10^3/uL (0.0-0.2) Sodium Level 140 mmol/L (136-145) Potassium Level 3.7 mmol/L (3.5-5.1) Chloride Level 102 mmol/L (98-107) Carbon Dioxide Level 28 mmol/L (21-32) Anion Gap 10 (6-14) Blood Urea Nitrogen 20 mg/dL (8-26) Creatinine 0.9 mg/dL (0.7-1.3) Estimated GFR (Cockcroft-Gault) 92.5 Glucose Level 140 mg/dL (70-99) Calcium Level 8.8 mg/dL (8.5-10.1) Total Bilirubin 0.3 mg/dL (0.2-1.0) Direct Bilirubin 0.1 mg/dL (0.0-0.2) Aspartate Amino Transf (AST/SGOT) 19 U/L (15-37) Alanine Aminotransferase (ALT/SGPT) 39 U/L (16-63) Alkaline Phosphatase 129 U/L (46-116) Creatine Kinase 94 U/L (39-308) Troponin I High Sensitivity < 4 ng/L (4-75) Total Protein 7.6 g/dL (6.4-8.2) Albumin 3.6 g/dL (3.4-5.0) Lipase 130 U/L (73-393) Ethyl Alcohol Level < 10 mg/dL (0-10) Urine Collection Type Unknown Urine Color Yellow Urine Clarity Clear Urine pH 5.0 (<5.0-8.0) Urine Specific [place] >=1.030 (1.000-1.030) Urine Protein Negative mg/dL (NEG-TRACE) Urine Glucose (UA) 100 mg/dL (NEG) Urine Ketones (Stick) Negative mg/dL (NEG) Urine Blood Negative (NEG) Urine Nitrite Negative (NEG) Urine Bilirubin Negative (NEG) Urine Urobilinogen Dipstick 0.2 mg/dL (0.2 mg/dL) Urine Leukocyte Esterase Negative (NEG) Urine RBC 0 /HPF (0-2) Urine WBC Occ /HPF (0-4) Urine Squamous Epithelial Cells Few /LPF Urine Bacteria 0 /HPF (0-FEW) Urine Opiates Screen Pos (NEG) Urine Methadone Screen Neg (NEG) Urine Barbiturates Neg (NEG) Urine Phencyclidine Screen Neg (NEG) Urine Amphetamine/Methamphetamine Neg (NEG) Urine Benzodiazepines Screen Neg (NEG) Urine Cocaine Screen Neg (NEG) Urine Cannabinoids Screen Neg (NEG) Urine Ethyl Alcohol Neg (NEG) SARS-CoV-2 Antigen (Rapid) Negative (NEGATIVE) Laboratory Tests Test 09/11/21 01:10 09/11/21 03:58 White Blood Count 13.5 x10^3/uL (4.0-11.0) Red Blood Count 4.79 x10^6/uL (4.30-5.70) Hemoglobin 14.2 g/dL (13.0-17.5) Hematocrit 42.6 % (39.0-53.0) Mean Corpuscular Volume 89 fL (79-100) Mean Corpuscular Hemoglobin 30 pg (25-35) Mean Corpuscular Hemoglobin Concent 33 g/dL (31-37) Red Cell Distribution Width 13.4 % (11.5-14.5) Platelet Count 346 x10^3/uL (140-400) Neutrophils (%) (Auto) 69 % (31-73) Lymphocytes (%) (Auto) 23 % (24-48) Monocytes (%) (Auto) 6 % (0-9) Eosinophils (%) (Auto) 1 % (0-3) Basophils (%) (Auto) 0 % (0-3) Neutrophils # (Auto) 9.4 x10^3/uL (1.8-7.7) Lymphocytes # (Auto) 3.2 x10^3/uL (1.0-4.8) Monocytes # (Auto) 0.7 x10^3/uL (0.0-1.1) Eosinophils # (Auto) 0.2 x10^3/uL (0.0-0.7) Basophils # (Auto) 0.0 x10^3/uL (0.0-0.2) Sodium Level 140 mmol/L (136-145) Potassium Level 3.7 mmol/L (3.5-5.1) Chloride Level 102 mmol/L (98-107) Carbon Dioxide Level 28 mmol/L (21-32) Anion Gap 10 (6-14) Blood Urea Nitrogen 20 mg/dL (8-26) Creatinine 0.9 mg/dL (0.7-1.3) Estimated GFR (Cockcroft-Gault) 92.5 Glucose Level 140 mg/dL (70-99) Calcium Level 8.8 mg/dL (8.5-10.1) Total Bilirubin 0.3 mg/dL (0.2-1.0) Direct Bilirubin 0.1 mg/dL (0.0-0.2) Aspartate Amino Transf (AST/SGOT) 19 U/L (15-37) Alanine Aminotransferase (ALT/SGPT) 39 U/L (16-63) Alkaline Phosphatase 129 U/L (46-116) Creatine Kinase 94 U/L (39-308) Troponin I High Sensitivity < 4 ng/L (4-75) Total Protein 7.6 g/dL (6.4-8.2) Albumin 3.6 g/dL (3.4-5.0) Lipase 130 U/L (73-393) Ethyl Alcohol Level < 10 mg/dL (0-10) Urine Collection Type Unknown Urine Color Yellow Urine Clarity Clear Urine pH 5.0 (<5.0-8.0) Urine Specific [place] >=1.030 (1.000-1.030) Urine Protein Negative mg/dL (NEG-TRACE) Urine Glucose (UA) 100 mg/dL (NEG) Urine Ketones (Stick) Negative mg/dL (NEG) Urine Blood Negative (NEG) Urine Nitrite Negative (NEG) Urine Bilirubin Negative (NEG) Urine Urobilinogen Dipstick 0.2 mg/dL (0.2 mg/dL) Urine Leukocyte Esterase Negative (NEG) Urine RBC 0 /HPF (0-2) Urine WBC Occ /HPF (0-4) Urine Squamous Epithelial Cells Few /LPF Urine Bacteria 0 /HPF (0-FEW) Urine Opiates Screen Pos (NEG) Urine Methadone Screen Neg (NEG) Urine Barbiturates Neg (NEG) Urine Phencyclidine Screen Neg (NEG) Urine Amphetamine/Methamphetamine Neg (NEG) Urine Benzodiazepines Screen Neg (NEG) Urine Cocaine Screen Neg (NEG) Urine Cannabinoids Screen Neg (NEG) Urine Ethyl Alcohol Neg (NEG) SARS-CoV-2 Antigen (Rapid) Negative (NEGATIVE) Assessment/Plan Assessment/Plan Acute cholecystitis. History of tobacco use -Patient presenting 1 day history abdominal pain decreased p.o. intake nausea vomiting -Work-up in ER included pain control, imaging which revealed acute cholecystitis -Patient had hives with Zosyn and will instead try cefoxitin -As needed pain control -Consult to surgical team -We will keep n.p.o. until evaluated by surgery -Hold off DVT prophylaxis in event of surgery -Plan of care discussed with bedside RN. 18 minutes advance care planning discussed with patient. Justifications for Admission Other Justification JANICE REEVES MD Sep 11, 2021 14:31
[2021-09-11 15:00] VITALS: BP 135/83
[2021-09-11] MEDS: cefOXitin SODIUM IV Push 1 GM VIAL. IVP SCH ×2 (15:19→21:29)
[2021-09-11 19:00] VITALS: BP 139/80
[2021-09-11] MEDS: SENNOSIDES/DOCUSATE 8.6/50MG TABLET. PO SCH (19:55)
[2021-09-11 22:41] VITALS: BP 142/74
[2021-09-12] VITALS (10 sets, daily range): BP systolic 116–132; BP diastolic 58–90
[2021-09-12] MEDS: cefOXitin SODIUM IV Push 1 GM VIAL. IVP SCH ×3 (05:34→21:31)
[2021-09-12] MEDS ORDERED: fentaNYL PF VIAL 100 MCG/2 ML VIAL IVP PRN ×2 (06:00)
[2021-09-12] MEDS ORDERED: PROCHLORPERAZINE 10 MG/2 ML VIAL. IVP PRN (06:00)
[2021-09-12] MEDS ORDERED: IV RINGERS,LACTATED 1000ML 1,000 ML IV SCH (06:00)
[2021-09-12] MEDS ORDERED: HYDROmorphone 2 MG/ML VIAL IVP PRN (06:00)
[2021-09-12] MEDS ORDERED: MORPHINE SULFATE 2 MG/ML INJ. IVP PRN (06:00)
[2021-09-12] MEDS: PANTOPRAZOLE 40 MG TABLET.DR. PO SCH (07:30)
[2021-09-12] MEDS: SUCRALFATE 1 GM TABLET. PO SCH ×4 (09:00→20:39)
[2021-09-12] MEDS: SENNOSIDES/DOCUSATE 8.6/50MG TABLET. PO SCH ×2 (09:00→20:39)
--- NOTE | 2021-09-12 11:34 | PDOC ---
[employer] PROGRESS NOTE Date of Service DOS: DATE: 09/12/21 TIME: 11:32 Chief Complaint Chief Complaint abdominal pain History of Present Illness History of Present Illness 09/12/2021 Patient seen and examined Patient is smiling, appears well, in NAD Cholecystectomy today Chart reviewed Discussed with RN Vitals/I&O Vitals/I&O: Vital Signs Date Time Temp Pulse Resp B/P (MAP) Pulse Ox O2 Delivery O2 Flow Rate FiO2 09/12/21 08:00 Room Air 09/12/21 07:00 97.8 79 18 116/58 (77) 95 97.8 09/11/21 16:20 2.0 I & O 09/11/21 09/11/21 09/12/21 15:00 23:00 07:00 Intake Total 1200 ml Output Total 300 ml Balance -300 ml 1200 ml Physical Exam General: Alert, Oriented X3, Cooperative, No acute distress Heart: Regular rate Lungs: Clear Abdomen: Soft, Other (TTP RUQ) Extremities: No clubbing, No cyanosis Skin: No rashes, No breakdown Assessment and Plan Assessmemt and Plan Problems Medical Problems: (1) Acute cholecystitis Status: Acute (2) Allergic reaction to penicillin Status: Acute (3) Nausea and vomiting Status: Acute (4) Right upper quadrant pain Status: Acute Acute cholecystitis Hx of tobacco use Plan: Surgery today (09/12) Pain meds PRN Home meds Full code Comment Review of Relevant I have reviewed the following items ju (where applicable) has been applied. Medications: Current Medications Medications (Trade) Dose Ordered Sig/Rahul Route PRN Reason Start Time Stop Time Status Last Admin Dose Admin Cefoxitin Sodium (Mefoxin) 1 gm Q8HRS IVP 09/11/21 14:00 09/12/21 05:34 Justifications for Admission Other Justification MARTY HARRIS III DO Sep 12, 2021 11:34
--- NOTE | 2021-09-12 11:46 | NUR ---
SW following. Discussed with RN, pt from home, room air, clear liquid diet, COVID-19 negative. Surgery following - tee today. Med Assist following for self pay status. SW will continue to follow.
--- NOTE | 2021-09-12 12:30 | NUR ---
Pt to surgery by bed.
--- NOTE | 2021-09-12 12:40 | PDOC ---
SURGICAL PROGRESS NOTE DATE: 09/12/21 TIME: 12:35 Subjective Pre-Op Note 41 yo M with calculous cholecystitis. TO OR for laparoscopic versus open cholecystectomy with cholangiogram. R/R/B/A d/w pt and pt's supportive SO. Risks, including, but not limited to: bleeding, infection, damage to surrounding structures, risk of anesthesia. They appear to understand, their questions are answered and they elect to proceed. Vital Signs Vital Signs Date Time Temp Pulse Resp B/P (MAP) Pulse Ox O2 Delivery O2 Flow Rate FiO2 09/12/21 11:00 97.9 77 18 118/72 (87) 91 Room Air 97.9 09/11/21 16:20 2.0 I&O Intake and Output 09/12/21 07:00 Intake Total 1200 ml Output Total 300 ml Balance 900 ml Other 1200 ml Output Urine Total 300 ml Labs Laboratory Tests Test 09/11/21 01:10 09/11/21 03:58 White Blood Count 13.5 x10^3/uL (4.0-11.0) Red Blood Count 4.79 x10^6/uL (4.30-5.70) Hemoglobin 14.2 g/dL (13.0-17.5) Hematocrit 42.6 % (39.0-53.0) Mean Corpuscular Volume 89 fL (79-100) Mean Corpuscular Hemoglobin 30 pg (25-35) Mean Corpuscular Hemoglobin Concent 33 g/dL (31-37) Red Cell Distribution Width 13.4 % (11.5-14.5) Platelet Count 346 x10^3/uL (140-400) Neutrophils (%) (Auto) 69 % (31-73) Lymphocytes (%) (Auto) 23 % (24-48) Monocytes (%) (Auto) 6 % (0-9) Eosinophils (%) (Auto) 1 % (0-3) Basophils (%) (Auto) 0 % (0-3) Neutrophils # (Auto) 9.4 x10^3/uL (1.8-7.7) Lymphocytes # (Auto) 3.2 x10^3/uL (1.0-4.8) Monocytes # (Auto) 0.7 x10^3/uL (0.0-1.1) Eosinophils # (Auto) 0.2 x10^3/uL (0.0-0.7) Basophils # (Auto) 0.0 x10^3/uL (0.0-0.2) Sodium Level 140 mmol/L (136-145) Potassium Level 3.7 mmol/L (3.5-5.1) Chloride Level 102 mmol/L (98-107) Carbon Dioxide Level 28 mmol/L (21-32) Anion Gap 10 (6-14) Blood Urea Nitrogen 20 mg/dL (8-26) Creatinine 0.9 mg/dL (0.7-1.3) Estimated GFR (Cockcroft-Gault) 92.5 Glucose Level 140 mg/dL (70-99) Calcium Level 8.8 mg/dL (8.5-10.1) Total Bilirubin 0.3 mg/dL (0.2-1.0) Direct Bilirubin 0.1 mg/dL (0.0-0.2) Aspartate Amino Transf (AST/SGOT) 19 U/L (15-37) Alanine Aminotransferase (ALT/SGPT) 39 U/L (16-63) Alkaline Phosphatase 129 U/L (46-116) Creatine Kinase 94 U/L (39-308) Troponin I High Sensitivity < 4 ng/L (4-75) Total Protein 7.6 g/dL (6.4-8.2) Albumin 3.6 g/dL (3.4-5.0) Lipase 130 U/L (73-393) Ethyl Alcohol Level < 10 mg/dL (0-10) Urine Collection Type Unknown Urine Color Yellow Urine Clarity Clear Urine pH 5.0 (<5.0-8.0) Urine Specific [place] >=1.030 (1.000-1.030) Urine Protein Negative mg/dL (NEG-TRACE) Urine Glucose (UA) 100 mg/dL (NEG) Urine Ketones (Stick) Negative mg/dL (NEG) Urine Blood Negative (NEG) Urine Nitrite Negative (NEG) Urine Bilirubin Negative (NEG) Urine Urobilinogen Dipstick 0.2 mg/dL (0.2 mg/dL) Urine Leukocyte Esterase Negative (NEG) Urine RBC 0 /HPF (0-2) Urine WBC Occ /HPF (0-4) Urine Squamous Epithelial Cells Few /LPF Urine Bacteria 0 /HPF (0-FEW) Urine Opiates Screen Pos (NEG) Urine Methadone Screen Neg (NEG) Urine Barbiturates Neg (NEG) Urine Phencyclidine Screen Neg (NEG) Urine Amphetamine/Methamphetamine Neg (NEG) Urine Benzodiazepines Screen Neg (NEG) Urine Cocaine Screen Neg (NEG) Urine Cannabinoids Screen Neg (NEG) Urine Ethyl Alcohol Neg (NEG) SARS-CoV-2 RNA (SID) Negative (Negative) SARS-CoV-2 Antigen (Rapid) Negative (NEGATIVE) Problem List Problems Medical Problems: (1) Acute cholecystitis Status: Acute (2) Allergic reaction to penicillin Status: Acute (3) Nausea and vomiting Status: Acute (4) Right upper quadrant pain Status: Acute Justicifation of Admission Dx: Justifications for Admission: Justification of Admission Dx: N/A SHAYLA TANG MD Sep 12, 2021 12:40
[2021-09-12] MEDS ORDERED: ceFAZolin 2GM PREMIX 2 GM/50 ML BAG IV ONE (13:00)
[2021-09-12] MEDS ORDERED: MIDAZOLAM HCL/PF 2 MG/2 ML VIAL. ONE (13:37)
[2021-09-12] MEDS ORDERED: ONDANSETRON PF 4 MG/2 ML VIAL. ONE ×2 (13:37→14:37)
[2021-09-12] MEDS ORDERED: DEXAMETHASONE SOD PHOS 4 MG/ML VIAL ONE (13:37)
[2021-09-12] MEDS ORDERED: PROPOFOL 10 MG/ML (20ML) VIAL. IV ONE (13:37)
[2021-09-12] MEDS ORDERED: fentaNYL PF VIAL 250 MCG/5 ML VIAL ONE (13:37)
[2021-09-12] MEDS ORDERED: LIDOCAINE 2% PF 5 ML VIAL. ONE (13:37)
[2021-09-12] MEDS ORDERED: IOHEXOL 300 MG/ML 50 ML VIAL. ONE ×2 (13:55→15:00)
[2021-09-12] MEDS ORDERED: HEPARIN for IV BOLUS 10,000 UNIT/10 ML VIAL. ONE (13:55)
[2021-09-12] MEDS ORDERED: BUPIVACAINE-EPI 0.5% 30 ML VIAL KIT. ONE (13:55)
[2021-09-12] MEDS ORDERED: BISACODYL 10 MG SUPP.RECT. ONE (13:55)
[2021-09-12] MEDS ORDERED: SURGICEL HEMOSTAT 4X8 EACH. ONE (13:55)
[2021-09-12] MEDS ORDERED: SEVOFLURANE 61 TO 120 MINUTES. IH ONE (14:23)
[2021-09-12] MEDS ORDERED: GLUCAGON,HUMAN RECOMBINANT 1 MG/ML VIAL. ONE (14:50)
--- NOTE | 2021-09-12 15:57 | PDOC4 ---
OPERATIVE NOTE Date: Date: Sep 12, 2021 Pre-Op Diagnosis: Calculous cholecystitis Post-Op Diagnosis: same, choledocholithiasis Procedure Performed: laparoscopic cholecystectomy with cholangiogram, common bile duct exploration Surgeon: Junaid Tang Anesthesia Type: GETA plus local Blood Loss: 50 Specimans Obtained: gallbladder Findings: gangrenous changes of gallbladder, friable, no other pathology noted, common bile duct obstruction secondary to stone, cleared by radha catheter. Complications: none Operative Note: After obtaining informed consent, patient was taken to OR, induced under GETA and prepped in the usual fashion. 5 mm ports placed umbilical and RUQ, 12 port placed epigastric, all under laparoscopic guidance. Abdominal cavity was explored and noted as above. Gallbladder grasped and triangle of calot exposed. Critical view was obtained. Cystic artery ligated with clips. Cholangiogram was obtained via cystic duct which demonstrated normal anatomy, but obstruction distally. Radha 6 was passed via cystic duct and multiple passes were performed. Final cholangiogram demonstrated duct clearance with free extravasation into duodenum. Cystic duct controlled with hemolok and clips. Gallbladder taken off fossa using cautery, placed in bag, delivered and sent to pathology. Copious irrigation. No evidence of bleeding or other pathology. Ports removed without bleeding. Fascia repaired with 0 vicryl. Skin repaired with 4 0 monocryl. Dressing placed. Patient tolerated procedure well and sent to PACU in stable condition. All counts correct. Wound class is 3. SHAYLA TANG MD Sep 12, 2021 15:57
[2021-09-12] MEDS ORDERED: DEXTROSE 50% 25 GM / 50ML DISP.SYRIN. IV PRN (16:00)
[2021-09-12] MEDS ORDERED: ONDANSETRON PF 4 MG/2 ML VIAL. IVP PRN (16:00)
[2021-09-12] MEDS ORDERED: NALOXONE 0.4 MG/ML VIAL. IV PRN (16:00)
[2021-09-12] MEDS ORDERED: 0.9 % SODIUM CHLORIDE 10 ML DISP.SYRIN. IV PRN (16:00)
[2021-09-12] MEDS ORDERED: IV NORMAL SALINE 1000ML BAG 1,000 ML IV SCH (16:00)
--- NOTE | 2021-09-12 16:13 | EKG ---
[facility] [address] [place] [address] Test Date: 2021-09-11 Test Time: 01:19:11 Pat Name: BRAN CHARLES Department: Room: Gender: M [employer] Account Manager: : 1980 Requested By: DAQUAN PALACIOS Order Number: [id number] Reading MD: Measurements Intervals [place] Rate: 64 P: 41 GA: 126 QRS: 54 QRSD: 84 T: 41 QT: 384 QTc: 400 Interpretive Statements SINUS RHYTHM NORMAL ECG RI6.02 No previous ECG available for comparison
--- NOTE | 2021-09-12 16:28 | RAD ---
DG INTRAOPERATIVE CHOLANGIOGRAM History: Intraoperative cholangiogram. Pain. Comparison: None. Technique/findings: Fluoroscopy provided intraoperatively during cholangiogram after cholecystectomy. Apparent filling de fect within the distal common bile duct on initial cholangiogram is is not identified on subsequent c holangiogram. No biliary ductal dilatation. Contrast is seen into the small bowel on second cholangio gram with additional injection of contrast. See procedure note for further details. Fluoroscopy time: 50 seconds and then 1 minute 56 seconds. Number of fluoroscopic images: 6 and a 10 9 Impression: 1. Fluoroscopy provided during cholangiogram. 2. No common bile duct stenosis or obstruction on subsequent cholangiogram. Electronically signed by: Juan Al DO (09/12/2021 4:26 PM) [id number]
[2021-09-12] MEDS ORDERED: fentaNYL PF VIAL 100 MCG/2 ML VIAL ONE (16:37)
--- NOTE | 2021-09-12 17:05 | NUR ---
Pt returned to unit from PACU by bed. Drowsy but awakens easily. No c/o. 3 Lap sites 1 out 3 has some shadowing. Ice pack on site. KLAUS's on bilaterally. IVF's intact and infusing. Side rails up x's 3 with call light in reach. Significant other at bedside. VS stable. Cont. monitor.
[2021-09-12] MEDS: MORPHINE SULFATE 2 MG/ML INJ. IV PRN ×2 (19:40→23:42)
[2021-09-12] MEDS: DOCUSATE SODIUM 100 MG CAPSULE. PO SCH (20:39)
[2021-09-12] MEDS: IV RINGERS,LACTATED 1000ML 1,000 ML IV SCH (23:47)
[2021-09-13] MEDS: IV RINGERS,LACTATED 1000ML 1,000 ML IV SCH ×2 (02:00→10:06)
[2021-09-13 02:34] VITALS: BP 120/72
[2021-09-13] MEDS: cefOXitin SODIUM IV Push 1 GM VIAL. IVP SCH ×2 (06:00→14:45)
[2021-09-13 07:00] VITALS: BP 126/75
[2021-09-13] MEDS: DOCUSATE SODIUM 100 MG CAPSULE. PO SCH (09:56)
[2021-09-13] MEDS: SENNOSIDES/DOCUSATE 8.6/50MG TABLET. PO SCH (09:56)
[2021-09-13] MEDS: SUCRALFATE 1 GM TABLET. PO SCH ×2 (09:57→14:45)
[2021-09-13] MEDS: PANTOPRAZOLE 40 MG TABLET.DR. PO SCH (09:57)
[2021-09-13] MEDS: HYDROcodone/APAP 5/325MG 1 TAB TABLET PO PRN ×2 (09:58→14:45)
--- NOTE | 2021-09-13 10:17 | PDOC ---
[employer] PROGRESS NOTE Date of Service DOS: DATE: 09/13/21 TIME: 10:14 Chief Complaint Chief Complaint abdominal pain History of Present Illness History of Present Illness 09/13/2021 Patient seen and examined Patient is pleasant, appears well, in NAD Post-op day 1; lap ete Chart reviewed Discussed with RN 09/12/2021 Patient seen and examined Patient is smiling, appears well, in NAD Cholecystectomy today Chart reviewed Discussed with RN Vitals/I&O Vitals/I&O: Vital Signs Date Time Temp Pulse Resp B/P (MAP) Pulse Ox O2 Delivery O2 Flow Rate FiO2 09/13/21 09:58 18 93 Nasal Cannula 2.0 09/13/21 07:00 97.3 85 126/75 (92) 97.3 I & O 09/12/21 09/12/21 09/13/21 15:00 23:00 07:00 Intake Total 100 ml 1570 ml Output Total 1500 ml 200 ml Balance 100 ml 70 ml -200 ml Physical Exam General: Alert, Oriented X3, Cooperative, No acute distress Heart: Regular rate Lungs: Clear Abdomen: Soft, Other (TTP RUQ) Extremities: No clubbing, No cyanosis Skin: No rashes, No breakdown Assessment and Plan Assessmemt and Plan Problems Medical Problems: (1) Acute cholecystitis Status: Acute (2) Allergic reaction to penicillin Status: Acute (3) Nausea and vomiting Status: Acute (4) Right upper quadrant pain Status: Acute Acute cholecystitis Hx of tobacco use Plan: Cholecystectomy post op day 1 Pain meds PRN Home meds Full code Hope to discharge in the next day or so Comment Review of Relevant I have reviewed the following items ju (where applicable) has been applied. Medications: Current Medications Medications (Trade) Dose Ordered Sig/Rahul Route PRN Reason Start Time Stop Time Status Last Admin Dose Admin Bupivacaine HCl/ Epinephrine Bitart (Sensorcain-Epi 0.5% Kit) 30 ml STK-MED ONCE .ROUTE 09/12/21 13:55 09/12/21 13:55 DC 09/12/21 14:32 Iohexol (Omnipaque 300 Mg/ml) 50 ml STK-MED ONCE .ROUTE 09/12/21 13:55 09/12/21 13:55 DC 09/12/21 14:32 Iohexol (Omnipaque 300 Mg/ml) 50 ml STK-MED ONCE .ROUTE 09/12/21 15:00 09/12/21 15:00 DC 09/12/21 14:32 Ringer's Solution 1,000 ml @ 100 mls/hr Q10H IV 09/12/21 16:00 09/13/21 10:06 Acetaminophen/ Hydrocodone Bitart (Lortab 5/325) 1 tab PRN Q4HRS PRN PO MILD PAIN 1-3 09/12/21 16:00 09/13/21 09:58 Sodium Chloride 1,000 ml @ 25 mls/hr Q24H IV 09/12/21 16:00 09/13/21 02:51 Docusate Sodium (Colace) 100 mg BID PO 09/12/21 21:00 09/13/21 09:56 Justifications for Admission Other Justification MARTY HARRIS III DO Sep 13, 2021 10:17
[2021-09-13 11:00] VITALS: BP 122/82
--- NOTE | 2021-09-13 11:38 | PDOC ---
SURGICAL PROGRESS NOTE DATE: 09/13/21 TIME: 11:37 Subjective Pt with c/o incisional pain, but otherwise doing well, anmol clears Vital Signs Vital Signs Date Time Temp Pulse Resp B/P (MAP) Pulse Ox O2 Delivery O2 Flow Rate FiO2 09/13/21 11:00 98.8 75 18 122/82 (95) 93 Nasal Cannula 2.0 98.8 I&O Intake and Output 09/13/21 07:00 Intake Total 1670 ml Output Total 1700 ml Balance -30 ml Intake Oral 120 ml IV Total 1550 ml Output Urine Total 1650 ml Estimated Blood Loss 50 ml General: Alert, Oriented X3, Cooperative, No acute distress Abdomen: Soft, Other (dressing intact, appropriate TTP) Problem List Problems Medical Problems: (1) Acute cholecystitis Status: Acute (2) Allergic reaction to penicillin Status: Acute (3) Nausea and vomiting Status: Acute (4) Right upper quadrant pain Status: Acute Assessment/Plan s/p lap tee and common bile duct exploration ADAT OK to d/c home when OK with others. f/u in two weeks. Justicifation of Admission Dx: Justifications for Admission: Justification of Admission Dx: N/A SHAYLA TANG MD Sep 13, 2021 11:38
[2021-09-13 15:05] VITALS: BP 149/81
--- NOTE | 2021-09-13 17:00 | NUR ---
Discharge Note: [facility] Discharge instructions and discharge home medications (Tylenol Number 3 prn )and a copy given. All questions have been answered and understanding verbalized. The following instructions and handouts were given: Pain med called to [place] by Dr. Caputo. [facility] site care Followup with PCP in a week. Follow up with Dr. Pitts in 2 weeks. Information given to the patient. Discontinued lines and drains: peripheral IV intact, no complications noted Patient discharged to home with self-care via with spouse at 1620.
[2021-09-13] MEDS ORDERED: LACTOBACILLUS RHAMNOSUS GG 1 CAPSULE. PO SCH (21:00)
--- NOTE | 2021-09-14 17:11 | PATHOLOGY ---
[facility] Accession Number: [id number] . 01 Material submitted: . gallbladder - GALLBLADDER AND CONTENTS . 01 Clinical history: . ACUTE CHOLECYSTITIS LAP YULIANA WITH/WITHOUT GRAMS . 02 Diagnosis: Gallbladder, excision: - Acute necrotizing cholecystitis. - Chronic inflammation. - Cholelithiasis. - Cholesterolosis. - Benign segment of adherent liver parenchyma. - Negative for malignancy. . . (MLK:mml; 09/14/2021) M 09/14/2021 1613 Local . 02 Electronically signed: . Gaston Patel MD, Pathologist NPI- [id number] . 01 Gross description: . Fixative: Formalin Labeled: Gallbladder and contents Specimen received: Previously disrupted gallbladder Dimensions: 7.2 x 3.7 x 0.7 cm Serosa: Light panda-ellsworth Lymph node: None identified Mucosa: Velvety and dark panda to bile-stained with yellow stippling Average wall thickness: 0.2 cm Calculi: Present, light yellow and granular Abnormalities: None identified . A1- Real Estate [employer] body, fundus, and the cystic duct margin. ([facility]; 09/13/2021) [facility] 09/13/2021 1554 Local . 02 Pathologist provided ICD-10: K80.12 . 02 CPT . 094378 Specimen Comment: A courtesy copy of this report has been sent to [phone] Specimen Comment: [phone] Specimen Comment: Report sent to / DR HARRIS Performed at: 01 [facility] [address], [place], [place] [id number] MD Miguel Angel Gomes MD Phone: [phone] Performed at: 02 [facility] [address] [place], [place] [id number] MD Yovani Rebollar MD Phone: [phone]
== END 2021-09-13 16:20 | disposition home or self-care (01) | DRG 419 ==
LOC: ER 23:56 → ED HOLD 09-11 03:53 → 5 SOUTH 09-11 03:58
PROVIDERS: ADMIT Internal Medicine; ATTEND Internal Medicine
PROC: BF101ZZ Fluoroscopy of Bile Ducts using Low Osmolar Contrast (ICD-10-PCS; 2021-09-12)
PROC: 0FC94ZZ Extirpation of Matter from Common Bile Duct, Percutaneous Endoscopic Approach (ICD-10-PCS; 2021-09-12)
PROC: 0FT44ZZ Resection of Gallbladder, Percutaneous Endoscopic Approach (ICD-10-PCS; principal; 2021-09-12 13:15)
DX: K80.42 Calculus of bile duct with acute cholecystitis without obstruction (principal); K82.8 Other specified diseases of gallbladder; K82.A1 Gangrene of gallbladder in cholecystitis; T36.0X5A Adverse effect of penicillins, initial encounter; Z72.0 Tobacco use; Z90.49 Acquired absence of other specified parts of digestive tract; Z88.8 Allergy status to other drugs, medicaments and biological substances; Y92.89 Other specified places as the place of occurrence of the external cause; Z20.822 Contact with and (suspected) exposure to COVID-19
CPT/HCPCS: 36415; 71045; 71260; 74177; 74300; 74301; 76705; 80048; 80076; 80307; 81001; 82550; 83690; 84484; 85025; 87426; 88304; 93005; 96361; 96374; 96375; A4209; A4213; A4930; A6219; C1757; C1887; G0480; J0690; J0694; J0744; J1100; J1170; J1200; J1610; J1644; J1885; J2250; J2270; J2405; J2543; J2704; J2765; J3010; J3490; J7030; J7120; Q9967; U0003; U0005; 99285-25; G0378